=== PATIENT | female | born 1955 | race African-American/Black ===

== ENCOUNTER 2019-01-12 22:15 | Inpatient (IN) ==
[2019-01-12] MEDS ORDERED: CEFEPIME 2,000 MG in SODIUM CHLORIDE 0.9% 100 ML IV STA (23:04)
[2019-01-12] MEDS ORDERED: SODIUM CHLORIDE 0.9% 1,000 ML IV STA (23:04)
[2019-01-12] MEDS ORDERED: VANCOMYCIN INJ 1,000 MG in SODIUM CHLORIDE 0.9% 250 ML IV STA (23:05)
[2019-01-12] MEDS ORDERED: KETOROLAC 30 MG/1 ML VIAL IV STA (23:06)
[2019-01-12] MEDS ORDERED: ACETAMINOPHEN 500 MG TABLET PO STA (23:06)
[2019-01-12 23:13] LABS: Basophils % 0.4 % (0.0-0.8); Eosinophils # 0.1 10*3/uL (0.0-0.87); Eosinophils % 0.7 % (0.00-10.9); Hematocrit 28.6 VOL% (35.7-47.0); Hemoglobin 8.9 GM/DL (12.0-16.0); Immature Granulocytes % 0.4 %; Immature Granulocytes Absolute 0.03 #; Lymphocytes % 13.3 % (21.3-54.2); Mean Corpuscular HGB Conc 31.1 GM/DL (32-36); Mean Corpuscular Volume 87.2 FL (87-102); Monocytes % 8.6 % (1.7-12.7); Neutrophils % 76.6 % (38.7-73.9); Platelet Count 178 T/CUMM (130-400); Red Blood Count 3.28 MC/CUMM (3.8-5.5); Red Cell Distribution Width 15.1 % (9.3-17.3); White Blood Count 7.2 T/CUMM (4-12)
[2019-01-12 23:31] LABS: Albumin 3.3 G/DL (3.4-5.0); Bilirubin,Total 0.4 MG/DL (0.2-1.0); Calcium 7.8 MG/DL (8.5-10.1); Osmolality,Calculated 280.1 MOS/KG (273-304)
[2019-01-12] MEDS ORDERED: ACETAMINOPHEN 325 MG/10.15 ML UDCUP PO STA (23:48)
[2019-01-12] MEDS ORDERED: diphenhydrAMINE 50 MG/1 ML VIAL IV STA (23:52)
[2019-01-12] MEDS ORDERED: methylPREDNISolone SOD SUC 125 MG/2 ML VIAL IV STA (23:52)
[2019-01-12] MEDS ORDERED: FAMOTIDINE 20 MG/2 ML VIAL IV STA (23:53)
[2019-01-13 01:59] LABS: Apearance,Urine CLEAR (Clear); Bilirubin,Urine Negative (Negative); Blood, Urine Negative (Negative); Glucose,Urine (UA) Negative (Negative); Ketones,Urine Negative (Negative); Mucus,Urine Occasional /LPF (Occasional); Nitrite,Urine Negative (Negative); Protein,Urine Negative; RBC,Urine <1 /HPF (0-4); Squamous Epithelial Cell,Urine Occasional /HPF (0-10); Urine Color Straw (Yellow); Urine Specific Gravity 1.013 (1.001-1.035); Urine Urobilinogen < 2.0 EU/DL (0.2-1.0); WBC,Urine 10 /HPF (0-6)
[2019-01-13] MEDS ORDERED: ONDANSETRON 4 MG/2 ML VIAL IV PRN (03:16)
[2019-01-13] MEDS ORDERED: DEXTROSE 50% 25 GM/50 ML SYRINGE IV PRN (03:16)
[2019-01-13] MEDS ORDERED: GLUCAGON 1 MG VIAL IM PRN ×2 (03:16→03:28)
[2019-01-13] MEDS ORDERED: ALBUTEROL 2.5 MG/3 ML NEB RESP TX PRN (03:16)
[2019-01-13] MEDS ORDERED: DEXTROSE 50% 25 GM/50 ML VIAL IV PRN (03:28)
[2019-01-13] MEDS ORDERED: LEVOFLOXACIN INJ 500 MG in PREMIX 1 EACH IV SCH (03:30)
[2019-01-13] MEDS: INSULIN REGULAR 100 UNIT/ML SUBCUT SCH ×4 (07:24→21:26)
[2019-01-13 07:29] LABS: Basophils % 0.4 % (0.0-0.8); Hematocrit 30.5 VOL% (35.7-47.0); Hemoglobin 9.1 GM/DL (12.0-16.0); Immature Granulocytes % 0.4 %; Immature Granulocytes Absolute 0.02 #; Lymphocytes # 0.7 10*3/uL (1.4-4.0); Lymphocytes % 12.6 % (21.3-54.2); Mean Corpuscular HGB Conc 29.8 GM/DL (32-36); Mean Corpuscular Volume 88.9 FL (87-102); Mean Platelet Volume 12.1 FL (9.6-12.0); Monocytes % 1.9 % (1.7-12.7); Neutrophils % 84.7 % (38.7-73.9); Platelet Count 190 T/CUMM (130-400); Red Blood Count 3.43 MC/CUMM (3.8-5.5); Red Cell Distribution Width 15.1 % (9.3-17.3); White Blood Count 5.3 T/CUMM (4-12)
[2019-01-13 07:52] LABS: Albumin 3.1 G/DL (3.4-5.0); Bilirubin,Total 0.6 MG/DL (0.2-1.0); Calcium 8.1 MG/DL (8.5-10.1); Osmolality,Calculated 286.8 MOS/KG (273-304); Total Protein 6.7 G/DL (6.4-8.3)
[2019-01-13] MEDS: ALBUTEROL/IPRATROPIUM 3 ML NEB RESP TX SCH ×3 (07:57→19:16)
[2019-01-13] MEDS: PANTOPRAZOLE 40 MG TABLET PO SCH (10:12)
[2019-01-13] MEDS: predniSONE 20 MG TABLET PO SCH (10:12)
[2019-01-13] MEDS: ENOXAPARIN 40 MG/0.4 ML SYRINGE SUBCUT SCH (10:12)
[2019-01-13] MEDS: FLUoxetine 20 MG CAPSULE PO SCH (12:35)
[2019-01-13] MEDS: CLOPIDOGREL 75 MG TABLET PO SCH (12:35)
[2019-01-13] MEDS: amLODIPine 5 MG TABLET PO SCH (12:36)
[2019-01-13] MEDS: LEVOFLOXACIN INJ 500 MG in PREMIX 1 EACH IV SCH (12:42)
[2019-01-13] MEDS: CARVEDILOL 6.25 MG TABLET PO SCH (16:16)
[2019-01-13] MEDS: ATORVASTATIN 40 MG TABLET PO SCH (16:16)
[2019-01-13] MEDS: ACETAMINOPHEN 325 MG TABLET PO PRN (21:24)
[2019-01-13] MEDS: GABAPENTIN 300 MG CAPSULE PO SCH (21:27)
[2019-01-13] MEDS: POTASSIUM CHLORIDE 20 MEQ TABLET PO PRN (21:28)
[2019-01-14] MEDS: ALBUTEROL/IPRATROPIUM 3 ML NEB RESP TX SCH ×4 (00:22→18:57)
[2019-01-14] MEDS: POTASSIUM CHLORIDE 20 MEQ TABLET PO PRN (01:30)
[2019-01-14 04:29] LABS: Basophils % 0.1 % (0.0-0.8); Hematocrit 27.5 VOL% (35.7-47.0); Hemoglobin 8.3 GM/DL (12.0-16.0); Immature Granulocytes % 0.8 %; Immature Granulocytes Absolute 0.06 #; Lymphocytes # 1.2 10*3/uL (1.4-4.0); Lymphocytes % 16.6 % (21.3-54.2); Mean Corpuscular HGB Conc 30.2 GM/DL (32-36); Mean Corpuscular Volume 88.7 FL (87-102); Mean Platelet Volume 11.7 FL (9.6-12.0); Neutrophils % 68.5 % (38.7-73.9); Platelet Count 168 T/CUMM (130-400); Red Cell Distribution Width 15.1 % (9.3-17.3); White Blood Count 7.4 T/CUMM (4-12)
[2019-01-14 04:58] LABS: Osmolality,Calculated 292.6 MOS/KG (273-304)
[2019-01-14] MEDS: MAGNESIUM OXIDE 400 MG TABLET PO SCH (08:46)
[2019-01-14] MEDS: amLODIPine 5 MG TABLET PO SCH (08:46)
[2019-01-14] MEDS: CARVEDILOL 6.25 MG TABLET PO SCH ×2 (08:46→16:34)
[2019-01-14] MEDS: hydroCHLOROthiazide 25 MG TABLET PO SCH (08:46)
[2019-01-14] MEDS: predniSONE 20 MG TABLET PO SCH (08:46)
[2019-01-14] MEDS: FLUoxetine 20 MG CAPSULE PO SCH (08:46)
[2019-01-14] MEDS: PANTOPRAZOLE 40 MG TABLET PO SCH (08:46)
[2019-01-14] MEDS: DOCUSATE SODIUM 100 MG CAPSULE PO SCH (08:46)
[2019-01-14] MEDS: ENOXAPARIN 40 MG/0.4 ML SYRINGE SUBCUT SCH (08:49)
[2019-01-14] MEDS: CLOPIDOGREL 75 MG TABLET PO SCH (08:49)
[2019-01-14] MEDS: INSULIN REGULAR 100 UNIT/ML SUBCUT SCH ×4 (08:53→21:00)
[2019-01-14] MEDS: methylPREDNISolone SOD SUC 40 MG/1 ML VIAL IV SCH (11:54)
[2019-01-14] MEDS: LEVOFLOXACIN INJ 500 MG in PREMIX 1 EACH IV SCH (11:58)
[2019-01-14] MEDS: ATORVASTATIN 40 MG TABLET PO SCH (16:33)
[2019-01-14] MEDS: DICLOFENAC 1% GEL 100 GM TUBE TOP SCH ×2 (16:33→20:59)
[2019-01-14] MEDS: GABAPENTIN 300 MG CAPSULE PO SCH (20:59)
[2019-01-15] MEDS: ALBUTEROL/IPRATROPIUM 3 ML NEB RESP TX SCH ×4 (00:29→19:11)
[2019-01-15] MEDS: methylPREDNISolone SOD SUC 40 MG/1 ML VIAL IV SCH ×2 (00:55→12:19)
[2019-01-15 04:55] LABS: Basophils % 0.1 % (0.0-0.8); Hematocrit 30.4 VOL% (35.7-47.0); Hemoglobin 9.4 GM/DL (12.0-16.0); Immature Granulocytes Absolute 0.09 #; Lymphocytes # 1.2 10*3/uL (1.4-4.0); Lymphocytes % 14.1 % (21.3-54.2); Mean Corpuscular HGB Conc 30.9 GM/DL (32-36); Mean Corpuscular Volume 87.6 FL (87-102); Mean Platelet Volume 12.3 FL (9.6-12.0); Neutrophils % 77.8 % (38.7-73.9); Platelet Count 200 T/CUMM (130-400); Red Blood Count 3.47 MC/CUMM (3.8-5.5); Red Cell Distribution Width 15.1 % (9.3-17.3); White Blood Count 8.8 T/CUMM (4-12)
[2019-01-15 05:24] LABS: Calcium 8.2 MG/DL (8.5-10.1); Osmolality,Calculated 287.1 MOS/KG (273-304)
[2019-01-15] MEDS: hydroCHLOROthiazide 25 MG TABLET PO SCH (08:50)
[2019-01-15] MEDS: FLUoxetine 20 MG CAPSULE PO SCH (08:50)
[2019-01-15] MEDS: DOCUSATE SODIUM 100 MG CAPSULE PO SCH (08:51)
[2019-01-15] MEDS: amLODIPine 5 MG TABLET PO SCH (08:51)
[2019-01-15] MEDS: PANTOPRAZOLE 40 MG TABLET PO SCH (08:51)
[2019-01-15] MEDS: CLOPIDOGREL 75 MG TABLET PO SCH (08:51)
[2019-01-15] MEDS: CARVEDILOL 6.25 MG TABLET PO SCH ×2 (08:51→17:01)
[2019-01-15] MEDS: MAGNESIUM OXIDE 400 MG TABLET PO SCH (08:51)
[2019-01-15] MEDS: DICLOFENAC 1% GEL 100 GM TUBE TOP SCH ×3 (08:53→21:05)
[2019-01-15] MEDS: ENOXAPARIN 40 MG/0.4 ML SYRINGE SUBCUT SCH (08:53)
[2019-01-15] MEDS: INSULIN REGULAR 100 UNIT/ML SUBCUT SCH ×4 (08:55→21:05)
[2019-01-15] MEDS: LEVOFLOXACIN INJ 500 MG in PREMIX 1 EACH IV SCH (12:25)
[2019-01-15] MEDS: ATORVASTATIN 40 MG TABLET PO SCH (17:01)
[2019-01-15] MEDS: GABAPENTIN 300 MG CAPSULE PO SCH (21:05)
[2019-01-15] MEDS: ACETAMINOPHEN 325 MG TABLET PO PRN (21:10)
[2019-01-16] MEDS: methylPREDNISolone SOD SUC 40 MG/1 ML VIAL IV SCH ×2 (00:15→13:27)
[2019-01-16] MEDS: ALBUTEROL/IPRATROPIUM 3 ML NEB RESP TX SCH ×4 (02:11→19:42)
[2019-01-16 05:57] LABS: Basophils % 0.2 % (0.0-0.8); Hemoglobin 9.7 GM/DL (12.0-16.0); Immature Granulocytes % 1.2 %; Immature Granulocytes Absolute 0.12 #; Lymphocytes # 1.3 10*3/uL (1.4-4.0); Mean Corpuscular HGB Conc 30.3 GM/DL (32-36); Mean Corpuscular Volume 88.9 FL (87-102); Mean Platelet Volume 12.3 FL (9.6-12.0); Monocytes % 5.7 % (1.7-12.7); NRBC # 0.02 10*3/uL; Neutrophils % 79.9 % (38.7-73.9); Platelet Count 219 T/CUMM (130-400); White Blood Count 10.2 T/CUMM (4-12)
[2019-01-16 06:22] LABS: Calcium 8.1 MG/DL (8.5-10.1); Osmolality,Calculated 290.1 MOS/KG (273-304)
[2019-01-16] MEDS: INSULIN REGULAR 100 UNIT/ML SUBCUT SCH ×3 (10:11→18:44)
[2019-01-16] MEDS: FLUoxetine 20 MG CAPSULE PO SCH (10:13)
[2019-01-16] MEDS: hydroCHLOROthiazide 25 MG TABLET PO SCH (10:13)
[2019-01-16] MEDS: CLOPIDOGREL 75 MG TABLET PO SCH (10:14)
[2019-01-16] MEDS: ENOXAPARIN 40 MG/0.4 ML SYRINGE SUBCUT SCH (10:14)
[2019-01-16] MEDS: PANTOPRAZOLE 40 MG TABLET PO SCH (10:14)
[2019-01-16] MEDS: DOCUSATE SODIUM 100 MG CAPSULE PO SCH (10:14)
[2019-01-16] MEDS: amLODIPine 5 MG TABLET PO SCH (10:14)
[2019-01-16] MEDS: CARVEDILOL 6.25 MG TABLET PO SCH ×2 (10:14→19:07)
[2019-01-16] MEDS: MAGNESIUM OXIDE 400 MG TABLET PO SCH (10:14)
[2019-01-16] MEDS: DICLOFENAC 1% GEL 100 GM TUBE TOP SCH ×3 (10:15→21:52)
[2019-01-16] MEDS ORDERED: CYCLOBENZAPRINE 10 MG TABLET PO PRN (12:59)
[2019-01-16] MEDS: LEVOFLOXACIN INJ 500 MG in PREMIX 1 EACH IV SCH (13:30)
[2019-01-16] MEDS: ATORVASTATIN 40 MG TABLET PO SCH (19:07)
[2019-01-16] MEDS: GABAPENTIN 300 MG CAPSULE PO SCH (21:51)
[2019-01-17] MEDS: ALBUTEROL/IPRATROPIUM 3 ML NEB RESP TX SCH ×4 (00:30→19:34)
[2019-01-17] MEDS: INSULIN REGULAR 100 UNIT/ML SUBCUT SCH ×5 (02:24→21:42)
[2019-01-17] MEDS: methylPREDNISolone SOD SUC 40 MG/1 ML VIAL IV SCH ×2 (03:01→11:47)
[2019-01-17] MEDS: hydroCHLOROthiazide 25 MG TABLET PO SCH (09:25)
[2019-01-17] MEDS: MAGNESIUM OXIDE 400 MG TABLET PO SCH (09:25)
[2019-01-17] MEDS: PANTOPRAZOLE 40 MG TABLET PO SCH (09:25)
[2019-01-17] MEDS: amLODIPine 5 MG TABLET PO SCH (09:26)
[2019-01-17] MEDS: CLOPIDOGREL 75 MG TABLET PO SCH (09:26)
[2019-01-17] MEDS: CARVEDILOL 6.25 MG TABLET PO SCH ×2 (09:26→16:35)
[2019-01-17] MEDS: DOCUSATE SODIUM 100 MG CAPSULE PO SCH (09:26)
[2019-01-17] MEDS: FLUoxetine 20 MG CAPSULE PO SCH (09:26)
[2019-01-17] MEDS: ENOXAPARIN 40 MG/0.4 ML SYRINGE SUBCUT SCH (09:28)
[2019-01-17] MEDS: DICLOFENAC 1% GEL 100 GM TUBE TOP SCH ×3 (09:28→21:46)
[2019-01-17] MEDS ORDERED: MAGNESIUM HYDROXIDE SUSP 30 ML UDCUP PO PRN (10:28)
[2019-01-17] MEDS: LEVOFLOXACIN INJ 500 MG in PREMIX 1 EACH IV SCH (11:52)
[2019-01-17] MEDS ORDERED: MINERAL OIL ENEMA 133 ML BOTTLE RECTAL PRN (16:09)
[2019-01-17] MEDS ORDERED: LACTULOSE 20 GM/30 ML UDCUP PO PRN (16:09)
[2019-01-17] MEDS: ATORVASTATIN 40 MG TABLET PO SCH (16:35)
[2019-01-17] MEDS: GABAPENTIN 300 MG CAPSULE PO SCH (21:42)
[2019-01-18] MEDS: methylPREDNISolone SOD SUC 40 MG/1 ML VIAL IV SCH ×2 (00:21→12:20)
[2019-01-18] MEDS ORDERED: MELATONIN 3 MG TABLET PO ONE (00:45)
[2019-01-18] MEDS: ALBUTEROL/IPRATROPIUM 3 ML NEB RESP TX SCH ×3 (01:17→12:43)
[2019-01-18] MEDS: hydroCHLOROthiazide 25 MG TABLET PO SCH (09:17)
[2019-01-18] MEDS: FLUoxetine 20 MG CAPSULE PO SCH (09:17)
[2019-01-18] MEDS: ENOXAPARIN 40 MG/0.4 ML SYRINGE SUBCUT SCH (09:18)
[2019-01-18] MEDS: CLOPIDOGREL 75 MG TABLET PO SCH (09:18)
[2019-01-18] MEDS: DOCUSATE SODIUM 100 MG CAPSULE PO SCH (09:18)
[2019-01-18] MEDS: CARVEDILOL 6.25 MG TABLET PO SCH ×2 (09:18→17:34)
[2019-01-18] MEDS: MAGNESIUM OXIDE 400 MG TABLET PO SCH (09:18)
[2019-01-18] MEDS: INSULIN REGULAR 100 UNIT/ML SUBCUT SCH ×3 (09:18→16:51)
[2019-01-18] MEDS: amLODIPine 5 MG TABLET PO SCH (09:18)
[2019-01-18] MEDS: PANTOPRAZOLE 40 MG TABLET PO SCH (09:18)
[2019-01-18] MEDS: DICLOFENAC 1% GEL 100 GM TUBE TOP SCH ×2 (09:22→16:51)
[2019-01-18] MEDS ORDERED: NICOTINE 14 MG/24 HR PATCH TRANSDERM SCH (12:00)
[2019-01-18] MEDS: LEVOFLOXACIN INJ 500 MG in PREMIX 1 EACH IV SCH (12:22)
[2019-01-18 16:29] VITALS: BP 125/63
[2019-01-18] MEDS: ATORVASTATIN 40 MG TABLET PO SCH (17:34)
[2019-01-18] MEDS ORDERED: DOXYCYCLINE HYCLATE 100 MG CAPSULE PO SCH (21:00)
== END 2019-01-18 18:00 | disposition home or self-care (01) | DRG 140 ==
LOC: EDBD → EDUNIT# → N.ED 22:15 → N.EDINP 22:15 → N.4E 01-13 02:24 → SUATTDRO 01-13 03:18 → N.4E 01-13 03:34
PROVIDERS: ADMIT Internal Medicine; ATTEND Hospitalist